=== PATIENT | female | born 1985 | race Hispanic/Latino ===

== ENCOUNTER → 2024-03-03 06:19 | Outpatient (REF) | payer OTHER, SELFPAY ==
[2024-03-03 09:20] LABS: ALT (SGPT) 18 U/L (0-35); AST (SGOT) 23 U/L (14-36); Albumin 4.3 g/dl (3.5-5.0); Alkaline Phosphatase 92 U/L (38-126); Total Bilirubin 0.3 mg/dl (0.2-1.3); Total Protein 7.6 g/dl (6.3-8.2)
== END ==
LOC: CLINIC 06:19
PROVIDERS: ATTENDING PHYSICIAN Podiatrist Foot & Ankle Surgery
DX: Z00.00 Encounter for general adult medical examination without abnormal findings (principal); Z71.89 Other specified counseling
CPT/HCPCS: 36415; 80076

== ENCOUNTER → 2024-06-20 07:00 | Outpatient (REF) | payer OTHER, SELFPAY ==
[2024-06-20 10:08] LABS: Hematocrit 27.9 % (37.0-47.0); Hemoglobin 7.5 g/dL (12.0-16.0); Mean Corp Hgb Conc. 26.9 g/dL (33.0-37.0); Mean Corpuscular Hgb 16.5 pg (27.0-31.0); Mean Corpuscular Volume 61.3 fL (81.0-99.0); Red Blood Cell Count 4.55 10^6/uL (4.20-5.40); Red Cell Dist. Width 22.5 % (11.5-14.5); White Blood Cell Count 4.5 10^3/uL (4.8-10.8)
[2024-06-20 10:49] LABS: Platelet Count 235 10^3/uL (130-400)
[2024-06-20 11:02] LABS: Glycohemoglobin (HgbA1c) 5.6 % (4.0-5.6)
[2024-06-20 11:06] LABS: ALT (SGPT) 32 U/L (0-35); AST (SGOT) 27 U/L (14-36); Albumin 4.8 g/dl (3.5-5.0); Alkaline Phosphatase 77 U/L (38-126); Blood Urea Nitrogen 12 mg/dl (7-17); Calcium 9.2 mg/dl (8.4-10.2); Carbon Dioxide 23 mmol/L (22-30); Chloride 104 mmol/L (98-107); Direct Bilirubin 0.1 mg/dl (0.0-0.4); Glucose 111 mg/dl (70-99); Potassium 4.6 mmol/L (3.5-5.1); Sodium 139 mmol/L (135-145); Total Bilirubin 0.3 mg/dl (0.2-1.3); Total Protein 8.6 g/dl (6.3-8.2); eGFR > 60.00
[2024-06-20 11:22] LABS: Vitamin D, 25-OH*** 30.7 ng/mL (30-80)
== END ==
LOC: CLINIC 07:00
PROVIDERS: ATTENDING PHYSICIAN Nurse Practitioner Adult Health; REFERRING PHYSICIAN Podiatrist Foot & Ankle Surgery
DX: Z79.899 Other long term (current) drug therapy (principal); Z00.00 Encounter for general adult medical examination without abnormal findings; Z86.2 Personal history of diseases of the blood and blood-forming organs and certain disorders involving the immune mechanism; Z86.39 Personal history of other endocrine, nutritional and metabolic disease; R73.03 Prediabetes
CPT/HCPCS: 36415; 80053; 82248; 82306; 83036; 85027

== ENCOUNTER → 2024-08-07 07:45 | Outpatient (REF) | payer OTHER, SELFPAY ==
[2024-08-07 09:32] LABS: Iron 225 ug/dl (37-170)
[2024-08-07 09:36] LABS: Hematocrit 36.5 % (37.0-47.0); Hemoglobin 11.7 g/dL (12.0-16.0); Mean Corp Hgb Conc. 32.1 g/dL (33.0-37.0); Mean Corpuscular Hgb 24.7 pg (27.0-31.0); Platelet Count 224 10^3/uL (130-400); Red Blood Cell Count 4.74 10^6/uL (4.20-5.40)
[2024-08-07 09:47] LABS: Percent Saturation 58 % (20-50); Total Iron Binding Capacity 384 ug/dl (265-497)
[2024-08-07 10:07] LABS: Ferritin 8.7 ng/ml (6.24-137)
[2024-08-07 10:21] LABS: Vitamin B12 860 pg/ml (239-931)
== END ==
LOC: CLINIC 07:45
PROVIDERS: ATTENDING PHYSICIAN Nurse Practitioner Adult Health
DX: D50.0 Iron deficiency anemia secondary to blood loss (chronic) (principal)
CPT/HCPCS: 36415; 82607; 82728; 83540; 83550; 85027

== ENCOUNTER → 2024-11-07 07:41 | Outpatient (REF) | payer OTHER, SELFPAY ==
[2024-11-07 10:18] LABS: Hematocrit 36.1 % (37.0-47.0); Hemoglobin 12.0 g/dL (12.0-16.0); Mean Corp Hgb Conc. 33.2 g/dL (33.0-37.0); Mean Corpuscular Volume 85.3 fL (81.0-99.0); Nucleated Red Blood Cells % 0 %; Platelet Count 202 10^3/uL (130-400); Red Cell Dist. Width 14.1 % (11.5-14.5)
[2024-11-07 10:22] LABS: ALT (SGPT) 22 U/L (0-35); AST (SGOT) 21 U/L (14-36); Albumin 4.3 g/dl (3.5-5.0); Alkaline Phosphatase 78 U/L (38-126); Blood Urea Nitrogen 18 mg/dl (7-17); Calcium 8.9 mg/dl (8.4-10.2); Carbon Dioxide 23 mmol/L (22-30); Chloride 108 mmol/L (98-107); Glucose 117 mg/dl (70-99); Iron 158 ug/dl (37-170); Potassium 4.3 mmol/L (3.5-5.1); Sodium 136 mmol/L (135-145); Total Protein 7.6 g/dl (6.3-8.2); eGFR > 60.00
[2024-11-07 10:32] LABS: Total Iron Binding Capacity 439 ug/dl (265-497)
[2024-11-07 10:39] LABS: Vitamin D, 25-OH*** 26.1 ng/mL (30-80)
[2024-11-07 10:57] LABS: Ferritin 11.9 ng/ml (6.24-137)
[2024-11-07 12:02] LABS: Glycohemoglobin (HgbA1c) 5.8 % (4.0-5.6)
== END ==
LOC: CLINIC 07:41
PROVIDERS: ATTENDING PHYSICIAN Podiatrist Foot & Ankle Surgery; FAMILY PHYSICIAN Nurse Practitioner Adult Health
DX: B35.1 Tinea unguium (principal); D50.0 Iron deficiency anemia secondary to blood loss (chronic); R73.03 Prediabetes; E55.9 Vitamin D deficiency, unspecified
CPT/HCPCS: 36415; 80053; 82248; 82306; 82728; 83036; 83540; 83550; 85025